=== PATIENT | female | born 1990 | race African-American/Black ===

== ENCOUNTER 2017-08-27 13:31 | Inpatient (IN) | payer OTHER ==
[~2017-08-27] VITALS: Ht 160 cm; Wt 132.0 kg
--- NOTE | 2017-08-27 13:57 | History & Physical ---
General Information and HPI MD Statement: I have seen and personally examined FRANCINE REYNA and documented this H&P. 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 Denies: chills, fever. EENTM: Denies: blurred vision, double vision, visual changes. Cardiovascular: Denies: chest pain. Respiratory: Denies: cough. GI: Reports: abdominal pain. Genitourinary: Denies: dysuria, frequency. Neurological/Psychological: Denies: anxiety, depressed. Hematologic/Endocrine: Reports: no symptoms. Exam & Diagnostic Data Last 24 Hrs of Vital Signs/I&O vss Obstetric Exam Wgt Gained During : 25lbs Pelvimetry: tested to 6#3oz Dilation (cm): 9 Effacement (%): 100 Station: 0 Membranes: intact Fluid: unknown Fundal Height (cm): 38 Multiple Gestation? No Contractions: q3min Infant #1 - FHR Baseline: 135 Category: 1 Estimated Weight: 3800g Presentation: vtx Patient for Induction? No Physical Exam General Appearance Alert, Oriented X3, Cooperative, Moderate Distress Skin No Rashes HEENT Atraumatic Neck Supple Cardiovascular Regular Rate Lungs Clear to Auscultation Abdomen Soft Neurological Normal Speech, Normal Tone Labs Blood Type & Rh: O Pos Antibody Screen: neg Hct/Hgb & Platelets #1: 30.8/10.0/364 Hct/Hgb & Platelets #2: 31.8/10.3/397 Rubella: imm VDRL #1: nr VDRL #2: nr HbsAg: neg HIV #1: nr HIV #2 nr 1 Hr P Group B Strep: neg Initial Ultrasound: 05/29/17 14 weeks Anatomy Ultrasound: 06/29/2017 anatomy [facility]U Normal Ultrasound for EFW: 08/16/17 45%trile Genetic Testing: CF neg Quad negative Assessment/Plan As Ranked By This Provider Problem List: 1. Core Measures Venous Thromboembolism VTE Risk Factors / No Mechanical VTE Prophylaxis d/t LowRisk-No Interven Req'd No VTE Pharm Prophylaxis d/t LowRisk-No Interven Req'd Attending MD Review Statement Attending Statement Attending MD Statement: examined this patient, discussed with family, discussed w/nursing Attending Assessment/Plan: IUP at term active labor obesity plan expectant management
--- NOTE | 2017-08-27 14:19 | Labor & Delivery Summary ---
Delivery Summary Vaginal Delivery: Vaginal: vertex Episiotomy/Lacerations: Episiotomy/Lacerations: none Placenta: Placenta: spontanteous, normal, 3 vessel Anesthesia: none Baby's Weight: 6# 4oz Apgars - 1 Min: 9 Apgars - 5 Min: 9 Additional Comments: came in fully dilated AROM clear delivered intact 2 pushes placenta followed good hemostasis with iv pitocin
[2017-08-27 14:46] VITALS: BP 127/68
[2017-08-27 15:25] LABS: ABSOLUTE BASOPHIL COUNT 0 /CUMM (0.0-0.2); ABSOLUTE EOSINOPHIL COUNT 0.1 /CUMM (0.0-0.7); ABSOLUTE GRANULOCYTE CT 7.4 /CUMM (1.4-6.5); ABSOLUTE LYMPH COUNT 1.6 /CUMM (1.2-3.4); ABSOLUTE MONOCYTE COUNT 0.4 /CUMM (0.10-0.60); BASOPHIL % 0.2 % (0.0-2.0); EOSINOPHIL % 1.2 % (0-5); HEMATOCRIT 31.1 % (37-47); MEAN CORPUSCULAR HGB CONC 32.7 G/DL (33.0-37.0); MEAN CORPUSCULAR VOLUME 67.4 FL (81.0-99.0); MEAN PLATELET VOLUME 7.2 FL (7.4-10.4); PLATELET COUNT 421 /CUMM (130-400); RBC DISTRIBUTION WIDTH 18.4 % (11.5-14.5); RED BLOOD CELL CT 4.62 /CUMM (4.20-5.40); WHITE BLOOD CELL COUNT 9.5 /CUMM (4.8-10.8)
[2017-08-27 15:30] LABS: GRANULOCYTE % 77.9 % (42.2-75.2)
[2017-08-28 08:47] LABS: ABSOLUTE BASOPHIL COUNT 0 /CUMM (0.0-0.2); ABSOLUTE EOSINOPHIL COUNT 0.3 /CUMM (0.0-0.7); ABSOLUTE GRANULOCYTE CT 6.9 /CUMM (1.4-6.5); ABSOLUTE LYMPH COUNT 3.6 /CUMM (1.2-3.4); ABSOLUTE MONOCYTE COUNT 0.8 /CUMM (0.10-0.60); BASOPHIL % 0.3 % (0.0-2.0); EOSINOPHIL % 2.2 % (0-5); GRANULOCYTE % 59.9 % (42.2-75.2); MEAN CORPUSCULAR HGB 21.8 PG (27.0-31.0); MEAN CORPUSCULAR HGB CONC 32.5 G/DL (33.0-37.0); MEAN CORPUSCULAR VOLUME 67.1 FL (81.0-99.0); PLATELET COUNT 404 /CUMM (130-400); RBC DISTRIBUTION WIDTH 18.6 % (11.5-14.5); RED BLOOD CELL CT 4.33 /CUMM (4.20-5.40); WHITE BLOOD CELL COUNT 11.6 /CUMM (4.8-10.8)
--- NOTE | 2017-08-28 14:51 | PN- Post Delivery/GYN ---
Subjective Subjective: pt feeling well. pain well controlled. amb / void / zeb po. +bf. Objective Last 24 Hrs of Vital Signs/I&O afeb, v/ss Physical Exam: nad abd soft nt ff razia min lochia ext nt no ed Current Medications: Current Medications Sig/Cary Start time Last Medication Dose Route Stop Time Status Admin Acetaminophen 650 MG Q4P PRN 08/27 1430 AC PO Calcium Carbonate 500 MG TIDPRN 08/28 1500 UNVr PO Docusate Sodium 100 MG BID PRN 08/27 1430 AC 08/28 PO 0912 Enoxaparin Sodium 40 MG DAILY 08/28 1000 AC 08/28 SC 0912 Hydroxyzine HCl 50 MG AT BEDTIME NEED.. 08/27 1430 AC PO Ibuprofen 800 MG .STK-MED ONE 08/28 0303 DC PO 08/28 0304 Ibuprofen 800 MG Q6P PRN 08/27 1430 AC 08/28 PO 1449 Lactated Ringer's 1,000 ML Q8H 08/27 1400 DC 08/27 IV 1457 Magnesium Hydroxide 30 ML DAILY PRN 08/27 1430 AC PO Oxycodone/ 1 TAB Q3P PRN 08/27 1430 AC Acetaminophen PO Oxytocin 20 UNITS Q5H 08/27 1430 DC 08/27 Lactated Ringer's 1,000 ML IV 08/27 1929 1457 Last 24 Hrs of Labs/Marty: Laboratory Tests 08/28/17 0820: CBC w Diff NO MAN DIFF REQ, RBC 4.33, MCV 67.1 L, MCH 21.8 L, MCHC 32.5 L, RDW 18.6 H, MPV 7.0 L, Gran % 59.9, Lymphocytes % 31.0, Monocytes % 6.6, Eosinophils % 2.2, Basophils % 0.3, Absolute Granulocytes 6.9 H, Absolute Lymphocytes 3.6 H, Absolute Monocytes 0.8 H, Absolute Eosinophils 0.3, Absolute Basophils 0 08/27/17 1645: Urine Color BLDY H, Urine Clarity TURBD H, Urine pH 6.5, Ur Specific Ryder 1.025, Urine Protein 100 H, Urine Ketones 40 H, Urine Nitrite POS H, Urine Bilirubin NEG, Urine Urobilinogen 0.2, Ur Leukocyte Esterase TRACE H, Ur Microscopic SEDIMENT EXAMINED, Urine RBC >75 H, Urine WBC 3-5 H, Ur Epithelial Cells MOD H, Urine Mucus MOD H, Urine Hemoglobin LARGE H, Urine Glucose NEG Assessment/Plan Assessment/Plan ppd 1 s/p , doing well -start fe qd -routine pp care
[2017-08-29] MEDS ORDERED: FERROUS SULFAT325 M2 PO (09:00)
[2017-08-29] MEDS ORDERED: IBUPROFEN800 M1 PO (09:00)
--- NOTE | 2017-08-29 09:04 | PN- OBGYN ---
Surgical Brief Attending Note Brief Attending Note: PPD#2 pt is doing well, no complaints, tolerate diet, void without difficulties. PE: VSS CV RRR lungs CTA B/L Abdomen: soft, nontender, uterus firm, fundus below umbilicus, lochia mild Ext: DCT (-) A/P: 27 yo, s/p , PPD#2 1. encourage ambylation and . 2. RT PP care 3. will d/c home, f/u in office in 2wks and 6 wks. discharge instructions given.
== END 2017-08-29 12:31 | DRG 775 ==
LOC: CBCO 13:31 → GNO 13:39
PROVIDERS: Obstetrics & Gynecology
PROC: 10E0XZZ Delivery of Products of Conception, External Approach (ICD-10-PCS; principal; 2017-08-27)
DX: O99.214 Obesity complicating childbirth (principal); Z37.0 Single live birth; Z3A.36 36 weeks gestation of pregnancy
CPT/HCPCS: GNOS; 36415; 81001; J1650; J1885; J7120